=== PATIENT | male | born 1975 | race Caucasian/White ===

== ENCOUNTER 2017-03-07 16:38 | Emergency (ER) | payer MEDICAID ==
[~2017-03-07] VITALS: Wt 90.0 kg
[2017-03-07] MEDS ORDERED: DIPHTH/TET/ACEL PERTUSS (ADULT) 0.5 ML VIAL IM* ONE (18:00)
[2017-03-07] MEDS ORDERED: BACITRACIN 0.9 GM OINT TOP ONE (18:00)
[2017-03-07] MEDS ORDERED: IBUPROFEN 800 MG TAB PO ONE (18:00)
[2017-03-07] MEDS ORDERED: CEPH-443 PO (18:43)
[2017-03-07] MEDS ORDERED: IBUP-1542 PO (18:43)
[2017-03-07 18:44] VITALS: BP 105/68; PULSE 62; RESP 16; TEMP 98.2
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
== END 2017-03-07 18:45 | disposition home or self-care (01) ==
LOC: FTE 16:38
DX: T23.211A Burn of second degree of right thumb (nail), initial encounter (principal); W39.XXXA Discharge of firework, initial encounter; Y92.9 Unspecified place or not applicable; Z23 Encounter for immunization
CPT/HCPCS: 16000; 90715; Z7610; 90471

== ENCOUNTER 2017-11-20 05:33 | Emergency (ER) | END 2017-11-20 08:11 | disposition home or self-care (01) ==

== ENCOUNTER 2019-05-14 07:00 | Emergency (ER) | payer MEDICAID ==
[~2019-05-14] VITALS: Wt 91.9 kg
[~2019-05-14 07:00] MED LIST: CEPH-443 PO; CYCL10TA7 PO; IBUP-1542 PO; NAPR-985 PO; OFLO5DRO46 LEFT EYE
[2019-05-14] MEDS ORDERED: TETRACAINE 0.5% 4 ML OPH BOTH EYES ONE (08:00)
[2019-05-14] MEDS ORDERED: FLUORESCEIN STRIP BOTH EYES ONE (08:00)
[2019-05-14] MEDS ORDERED: DIPHTH/TET/ACEL PERTUSS (ADULT) 0.5 ML VIAL IM* ONE (09:00)
[2019-05-14 09:39] VITALS: BP 118/75; PULSE 78; RESP 18
== END 2019-05-14 09:40 | disposition home or self-care (01) ==
LOC: FTE 07:00
DX: S05.02XA Injury of conjunctiva and corneal abrasion without foreign body, left eye, initial encounter (principal); X58.XXXA Exposure to other specified factors, initial encounter; Y92.89 Other specified places as the place of occurrence of the external cause; Z23 Encounter for immunization
CPT/HCPCS: 76536; 90471; 90715; Z7502; Z7610